=== PATIENT | male | born 1930 | race Caucasian/White ===

== ENCOUNTER → 2017-04-20 | Outpatient (CLI) | payer OTHER ==
[~2017-04-20] MED LIST: APAP500 PO; ASA5UEC PO; CARDIZEM CD180 MG PO; DUONEB 2.5-0.5 M3 ML INH; FLOMAX0.4 MG PO; HYDROCODONE-APA1 TA1 PO; LUMIGAN2.5 M1 OP
[2017-04-20 10:45] LABS: HEMATOCRIT 34.2 % (42.0-52.0); HEMOGLOBIN 11.3 gm/dL (14.0-18.0); MCH 30.5 pg (26.0-34.0); MCHC 32.9 g/dL (28.0-37.0); MCV 92.6 fL (80.0-100.0); RBC 3.7 mil/uL (4.50-6.00); RDW 13.5 % (10.5-14.5); WBC 6.3 thou/uL (4.0-11.0)
[2017-04-20 10:55] LABS: CALCIUM 9.1 mg/dL (8.5-10.1); CREATININE 2.1 mg/dL (0.7-1.3)
[2017-04-20 11:00] LABS: ALBUMIN 3.7 g/dL (3.4-5.0); DIRECT BILIRUBIN 0.1 mg/dL (<0.1-0.3); TOTAL BILIRUBIN 0.4 mg/dL (<0.1-1.0); TOTAL PROTEIN 7.6 g/dL (6.4-8.2)
== END ==
LOC: LABMALL 10:11
PROVIDERS: Otolaryngology Plastic Surgery within the Head & Neck
DX: C43.59 Malignant melanoma of other part of trunk (principal); G25.0 Essential tremor; R79.89 Other specified abnormal findings of blood chemistry

== ENCOUNTER 2019-04-11 10:42 | Inpatient (IN) | payer OTHER ==
[~2019-04-11] VITALS: Ht 170.2 cm; Wt 61.6 kg
[2019-04-11] VITALS (7 sets, daily range): BP systolic 161–217; BP diastolic 63–89
[2019-04-11 11:16] LABS: ABSOLUTE NEUTROPHILS 3.7 thou/uL (1.4-8.2); EOSINOPHILS 3.8 % (0.0-3.0); HEMATOCRIT 37.9 % (42.0-52.0); HEMOGLOBIN 12.8 gm/dL (14.0-18.0); LYMPHOCYTES 18.2 % (24.0-44.0); MCH 31.9 pg (26.0-34.0); MCHC 33.9 g/dL (28.0-37.0); MCV 94.2 fL (80.0-100.0); MONOCYTES 7.1 % (1.0-8.0); PLATELET COUNT 201 thou/uL (150-400); POLYS 69.9 % (36.0-66.0); RBC 4.02 mil/uL (4.50-6.00); RDW 12.7 % (10.5-14.5); WBC 5.2 thou/uL (4.0-11.0)
[2019-04-11 11:33] LABS: ANION GAP 10 mmol/L (7-16); BUN 47 mg/dL (7-18); CALCIUM 8.8 mg/dL (8.5-10.1); CHLORIDE 107 mmol/L (98-107); CO2 24 mmol/L (21-32); CREATININE 2.2 mg/dL (0.7-1.3); GLUCOSE 101 mg/dL (74-106); POTASSIUM 4.7 mmol/L (3.5-5.1); SODIUM 141 mmol/L (136-145)
[2019-04-11 11:46] LABS: ALBUMIN 4.1 g/dL (3.4-5.0); SGOT 26 U/L (15-37); SGPT 29 U/L (30-65); TOTAL BILIRUBIN 0.5 mg/dL (<0.1-1.0); TOTAL PROTEIN 7.3 g/dL (6.4-8.2); TROPONIN-I <0.06 ng/mL (<0.06)
--- NOTE | 2019-04-11 19:32 | NUR ---
PATIENT ARRIVED FROM ED VIA STRECHER, ALERT AND ORIENTED. IN BED,MONITOR PLACED AND SINUS RHYTHM. MESSAGE SENT TO DR BUENROSTRO AND REPORT GIVING TO RN.
[2019-04-12 03:00] VITALS: BP 185/72
--- NOTE | 2019-04-12 05:10 | NUR ---
ASSUMED PT CARE AT SHIFT CHANGE WITH PT BEEN AN ADMIT FROM ER. NO SIGN OF DISTRESS NOTED, PT IS ALERT AND ORIENTED. NO FAMILY AT BEDSIDE. PT IS ADMITTED WITH HYPERTENSION. NURSE PRACTITIONER NOTIFIED AND BLOOD PRESSURE MEDS ADMINISTERED TO PT. ADMISSION ASSESSMENT AND DATA COMPLETED WITH PATIENT. TELEMETRY POLICY DISCUSSED WITH PATIENT AND HE VERBALIZES UNDERSTANDING. SCHEDULED MEDS ADMINISTERED. DENIES ANY FURTHER NEEDS AT THIS TIME.
[2019-04-12 07:35] VITALS: BP 153/62
[2019-04-12 09:24] LABS: CHOLESTEROL 147 mg/dL (<200); HDL CHOLESTEROL 51 mg/dL (>40); LDL CHOLESTEROL 83 mg/dL (<100); TC:HDL 2.9 Ratio (Not establshd); TRIGLYCERIDE 67 mg/dL (<150); VLDL 13 mg/dL (<40)
--- NOTE | 2019-04-12 10:32 | 2DMMODE ---
[facility] [address] 2 D/M-MODE ECHOCARDIOGRAM Name: ZACKARY GUZMAN Room #: 214-P ADM IN M.R.#: [id number] ������������� Admission: 04/11/19 ������������� Attend Phys: Filiberto Clifton MD Discharge: ��� ������������� ��� Date of : 30 Date of Service: 04/12/19 1032 �� Report #: [id number] �������� ��������������������������������������������[id number] THIS REPORT FOR: //name// APPROVED REPORT Study performed: 04/12/2019 09:38:45 EXAM: Comprehensive 2D, Doppler, and color-flow Echocardiogram Patient Location: Echo lab Room #: 214 Status: routine BSA: 1.72 HR: 77 bpm BP: 153/62 mmHg Rhythm: NSR Other Information Study Quality: Adequate/limited parasternal window Technically limited study due to body habitus and lung artifact. Indications Near syncope, murmur, HTN. 2D Dimensions RVDd: 35.18 mm IVSd: 12.00 (7-11mm) LVOT Diam: 19.63 (18-24mm) LVDd: 41.78 mm PWd: 11.00 (7-11mm) LVDs: 28.69 (25-40mm) Aortic Root: 38.54 mm Volumes Left Atrial Volume (Systole) Single Plane 4CH: 38.46 mL Single Plane 2CH: 47.96 mL LA ESV Index: 28.00 mL/m2 Aortic Valve AoV Peak Harinder.: 3.71 m/s AO Peak Gr.: 54.92 mmHg LVOT Max P.27 mmHg AO Mean Gr.: 37.62 mmHg AO V2 Mean: 2.97 m/s LVOT Max V: 1.25 m/s AO V2 VTI: 81.28 cm GAGE Vmax: 1.02 cm2 [facility] [employer] [place] [address] 2 D/M-MODE ECHOCARDIOGRAM Name: ZACKARY GUZMAN Room #: 214-P [facility] IN ..#: [id number] ������������� Admission: 04/11/19 ������������� Attend Phys: Filiberto Clifton MD Discharge: ��� ������������� ��� Date of : 30 Date of Service: 04/12/19 1032 �� Report #: [id number] �������� ��������������������������������������������[id number] Mitral Valve MV Decel. Time: 254.82 ms MV PHT: 73.90 ms MVA (PHT): 2.94 cm2 IVRT: 86.51 ms Pulmonary Valve PV Peak Harinder.: 1.21 m/s PV Peak Gr.: 5.90 mmHg Pulmonary Vein P Vein S: 0.50 m/s P Vein A: 0.41 m/s P Vein D: 0.27 m/s P Vein A Dur.: 62.3 msec P Vein S/D Ratio: 1.85 Tricuspid Valve TR Peak Harinder.: 2.88 m/s RAP Estimate: 5.00 mmHg TR Peak Gr.: 33.20 mmHg PA Pressure: 38.00 mmHg Left Ventricle The left ventricle is normal size. There is normal LV segmental wall motion. Mild concentric left ventricular hypertrophy. Left ventricular systolic function is normal. LVEF is 65%. Mild diastolic dysfunction is present (impaired relaxation pattern). Right Ventricle The right ventricle is normal size. The right ventricular systolic function is normal. Atria The left atrium size is normal. The right atrium size is normal. Aortic Valve Aortic valve is heavily calcified. Mild to moderate aortic regurgitation. There is moderate to severe valvular aortic stenosis. Calculated aortic valve area is 1.0 cm2 with maximum pressure gradient of 55 mmHg and mean pressure gradient of 38 mmHg. Mitral Valve Mitral valve leaflets are thickened. Heavily calcified annulus. Trace mitral regurgitation. Mild mitral stenosis with a mean pressure gradient of 5mmHg. Tricuspid Valve The tricuspid valve is normal in structure. Mild tricuspid [address] [address] 2 D/M-MODE ECHOCARDIOGRAM Name: ZACKARY GUZMAN Room #: 214-P [facility] IN ..#: [id number] ������������� Admission: 04/11/19 ������������� Attend Phys: Filiberto lCifton MD Discharge: ��� ������������� ��� Date of : 30 Date of Service: 04/12/19 1032 �� Report #: [id number] �������� ��������������������������������������������[id number] regurgitation. Estimated PAP is 35-40mmHg. Pulmonic Valve Pulmonic valve is not well visualized. Trace pulmonic regurgitation. Great Vessels Aortic root is mildly dilated. Ascending aorta is not well visualized. IVC is normal in size and collapses >50% with inspiration. Pericardium No pericardial effusion. <Conclusion> The left ventricle is normal size. LVEF is 65%. Aortic valve is heavily calcified. Mild to moderate aortic regurgitation. There is moderate to severe valvular aortic stenosis. Calculated aortic valve area is 1.0 cm2 with maximum pressure gradient of 55 mmHg and mean pressure gradient of 38 mmHg. AVmax 3.71 m/s Mitral valve leaflets are thickened. Heavily calcified annulus. Trace mitral regurgitation. Mild mitral stenosis with a mean pressure gradient of 5mmHg. The tricuspid valve is normal in structure. Mild tricuspid regurgitation. Estimated PAP is 35-40mmHg. Pulmonic valve is not well visualized. Trace pulmonic regurgitation. Aortic root is mildly dilated. No pericardial effusion. ��������������������������������������������� <ELECTRONICALLY SIGNED> ���������������������������������������� By: Truong Krishna MD ��������������������������������������������� 04/12/19 1032 1032 1032 Truong Krishna MD /INF
[2019-04-12 12:06] VITALS: BP 163/78
--- NOTE | 2019-04-12 13:39 | EKG ---
[address] [address] ELECTROCARDIOGRAM REPORT Name: ZACKARY GUZMAN Guanaco Room #: 214-P ADM IN M.R.#: [id number] ������������������ Admission: 04/11/19 ������������������ Attend Phys: Filiberto Clifton MD Discharge: ������������������ Date of : 30 Report #: [id number] ����������������������������������������������������������������� [id number] THIS REPORT FOR: //name// [facility] ED Test Date: 2019-04-11 Test Time: 10:57:15 Pat Name: ZACKARY GUZMAN Department: Room: 214 Gender: M Phone Operator: PATTI : 1930 Requested By: Patricia Chilel Order Number: [id number] MD: Nasir Campos Measurements Intervals [place] Rate: 60 P: 40 CO: 228 QRS: 31 QRSD: 84 T: 51 QT: 409 QTc: 409 Interpretive Statements Sinus rhythm Atrial premature complex Prolonged CO interval Consider left ventricular hypertrophy Baseline wander in lead(s) V3 Compared to ECG 05/13/2015 20:51:38 Atrial premature complex(es) now present Electronically Signed On 04-12-2019 13:39:39 CDT by Nasir Campos [email or web address] ��������������������������������������������� <ELECTRONICALLY SIGNED> ���������������������������������������� By: Nasir Campos MD ��������������������������������������������� 04/12/19 1339 1057 1057 Nasir Campos MD /EPI
--- NOTE | 2019-04-12 13:58 | NUR ---
ASSESMENT COMPLETED. BP ELEVATED OTHERWISE STABLE. DENIES PAIN. NO NOTED SOA. NO NV. AMBULATED IN HALLWAY SEVERAL TIMES TODAY. STAND BY WHEN UP. PT NOTED TO HAVE A RUN OF SVT AT APPROX 1200- RESOLVED. WILL MONITOR CLOSELY.
--- NOTE | 2019-04-12 16:44 | NUR ---
Chart reviewed and case discussed with the care team. Pt is a&ox4 and lives alone in a ranch style home. He is independent with gait, adl's and iadl's. He drives occasionally and relies on his son for help as needed. No cm intervention indicated at this time. Will ask the care team to order therapy evals.
[2019-04-12 16:57] VITALS: BP 150/64
--- NOTE | 2019-04-12 17:51 | NUR ---
NO CHANGE SINCE AM ASSESMENT. BP BETTER THIS EVENING. NO CONCERNS VOICED A THIS TIME. WILL CONT,. TO MONITOR.
[2019-04-12 19:47] VITALS: BP 148/67
--- NOTE | 2019-04-13 04:14 | NUR ---
Assumed care at 1845. Pt resting in bed. AOX4. Hasnt had an episode of syncope. Hasnt left his bed this shift. Denies dizziness. BP has been stable. Havent given hydralazine this shift. Chart check complete. No identified needs. Call light within reach. Will continue to monitor.
[2019-04-13 05:23] VITALS: BP 168/77
[2019-04-13 06:26] VITALS: BP 144/65
[2019-04-13 07:28] VITALS: BP 140/58
[2019-04-13 09:47] LABS: CALCIUM 9.1 mg/dL (8.5-10.1); CREATININE 2.2 mg/dL (0.7-1.3); POTASSIUM 4.9 mmol/L (3.5-5.1)
[2019-04-13 12:37] VITALS: BP 110/52
[2019-04-13] MEDS ORDERED: LOPERAMIDE 2 MG2 M1 PO (12:56)
[2019-04-13] MEDS ORDERED: METOPROLOL SUCC50 MG PO (12:56)
[2019-04-13] MEDS ORDERED: AMLODIPINE BESY10 MG PO (12:56)
[2019-04-13 16:26] VITALS: BP 112/75
[2019-04-13 19:35] VITALS: BP 156/77
[2019-04-14 00:03] VITALS: BP 134/97
[2019-04-14 00:53] LABS: URINE BILIRUBIN NEGATIVE (Negative); URINE BLOOD TRACE (Negative); URINE CLARITY CLEAR; URINE COLOR YELLOW; URINE GLUCOSE-RANDOM* NEGATIVE (Negative); URINE KETONES NEGATIVE (Negative); URINE PROTEIN (DIPSTICK) NEGATIVE (Negative); URINE SPECIFIC GRAVITY 1.015 (1.005-1.035); URINE UROBILINOGEN 0.2 E.U./dl (0.2-1.0)
[2019-04-14 00:56] LABS: URINE LEUKOCYTES-REFLEX 2+ (Negative); URINE NITRITE-REFLEX POSITIVE (Negative)
[2019-04-14 01:06] LABS: CASTS None Seen /LPF (None Seen); MUCUS None Seen strn/LPF (None Seen); SQUAMOUS None Seen /LPF (0-3); URINE RBC 0-2 Rare /HPF (0-2); WBC CLUMPS Few (None Seen)
[2019-04-14 01:07] LABS: BACTERIA-REFLEX 1-9 Few /HPF (None Seen); CRYSTALS None Seen /LPF (None Seen)
[2019-04-14 04:10] VITALS: BP 126/66
--- NOTE | 2019-04-14 06:23 | NUR ---
patient aox4 makes needs known. ua collected per order. patient ambulates in the room with unseady gaits. patient gets tachycardiac with activities. patient denied dizziness, pain or discomfort this shift. patient in bed asleep at this time breathing regular and unlaboured.
[2019-04-14 07:23] VITALS: BP 134/72
[2019-04-14 11:13] VITALS: BP 94/56
[2019-04-14 15:19] VITALS: BP 101/66
--- NOTE | 2019-04-14 18:05 | NUR ---
PT UP IN CHAIR MOST OF THE SHIFT AND AMBULATING HALLS. DENIES CP OR SOA. WILL HAVE STRESS TEST IN THE AM.
[2019-04-14 19:12] VITALS: BP 119/82
[2019-04-15 00:18] VITALS: BP 110/67
--- NOTE | 2019-04-15 00:22 | NUR ---
PROGRESS PT A/OX4 UP WITH SBA, VOIDING PER LEAH. DENIES PAIN EXCEPT FOR SOME CHRONIC RIGHT PAIN. VSS, TELE INTACT READING SR WITH RATES IN 70'2 TO 80'S. NPO AFTER MN PENDING STRESS TEST IN AM.
[2019-04-15 05:30] VITALS: BP 107/72
--- NOTE | 2019-04-15 06:40 | NUR ---
RECEIVED PT'S CARE AT 2320; PT. ON BED; SLEEPING; ASSESSMENT PERFORMED; C/O PAIN OVER L ARM; 04/22; ST. HAVING PAIN OVER 3 WEEKS; REFUSED PAIN MEDICATION; EDUCATED ABOUT BEING NPO AFTER MIDNIGHT; ST. UNDERSTANDING; REFUSED BED ALARM; ST. ABLE TO AMBULATE WITHOUT AIDS; ABLE TO SLEEP THROUGH THE NIGHT; ASSESSMENT CHARGED; FOLLOWING POC; WILL PASS ON REPORT.
[2019-04-15 08:19] VITALS: BP 113/81
[2019-04-15 12:43] VITALS: BP 114/75
[2019-04-15 16:11] VITALS: BP 114/75
--- NOTE | 2019-04-15 18:02 | NUR ---
ASSUMED CARE THIS AM, NPO FOR STRESS TEST. SA WITH PAC'S ON MONITOR. UP AD DARWIN. NO COMPLAINTS OF NAUSEA, DIZZINESS OR CP. STRESS TEST NEGATIVE AND ORDERS RECIEVED TO DISCHARGE PATIENT AFTER GETTING FIRST DOSE OF ELIQUIS. WILL GO TO SHAKIRA'S OFFICE IN AM TO GET MORE SAMPLES. DISCHARGE INSTRUCTIONS COMPLETED WITH PATIENT AND SON. QUESTIONS ASKED AND ANSWERED. DISCHARGED IN STABLE CONDITION
--- NOTE | 2019-04-16 09:11 | EKG ---
[address] [address] ELECTROCARDIOGRAM REPORT Name: ZACKARY GUZMAN Room #: 214-P DIS IN M.R.#: [id number] ������������������ Admission: 04/11/19 ������������������ Attend Phys: Filiberto Clifton MD Discharge: 04/15/19 ������������������ Date of : 30 Report #: [id number] ����������������������������������������������������������������� [id number] THIS REPORT FOR: //name// [facility] Test Date: 2019-04-15 Test Time: 15:43:17 Pat Name: ZACKARY GUZMAN Department: Room: 214 P Gender: M Curing Supervisor: JASWINDER : 1930 Requested By: Filiberto Clifton Order Number: [id number] MD: Kt Salinas Measurements Intervals [place] Rate: 70 P: MS: QRS: 32 QRSD: 91 T: 50 QT: 394 QTc: 426 Interpretive Statements Atrial fibrillation Otherwise no significant abnormality Compared to ECG 04/11/2019 10:57:15 Atrial fibrillation has replaced sinus rhythm Electronically Signed On 04-16-2019 9:11:00 CDT by Kt Salinas [email or web address] ��������������������������������������������� <ELECTRONICALLY SIGNED> ���������������������������������������� By: Kt Salinas MD, [facility] ��������������������������������������������� 04/16/19 09 1543 1543 Kt Salinas MD, [facility] /EPI
== END 2019-04-15 17:45 | disposition home or self-care (01) | DRG 683 ==
LOC: ER 10:42 → EROBS 13:18 → 2N 13:18
PROVIDERS: Nurse Practitioner; Nurse Practitioner Adult Health; Nurse Practitioner Family; ADMIT Internal Medicine
DX: N17.9 Acute kidney failure, unspecified (principal); K52.1 Toxic gastroenteritis and colitis; I49.9 Cardiac arrhythmia, unspecified; N18.4 Chronic kidney disease, stage 4 (severe); Z60.2 Problems related to living alone; R01.1 Cardiac murmur, unspecified; I12.9 Hypertensive chronic kidney disease with stage 1 through stage 4 chronic kidney disease, or unspecified chronic kidney disease; N18.9 Chronic kidney disease, unspecified; N40.0 Benign prostatic hyperplasia without lower urinary tract symptoms; I49.1 Atrial premature depolarization; E03.9 Hypothyroidism, unspecified; R00.0 Tachycardia, unspecified; I08.0 Rheumatic disorders of both mitral and aortic valves; I16.0 Hypertensive urgency; T46.5X5A Adverse effect of other antihypertensive drugs, initial encounter; H54.7 Unspecified visual loss; Z87.442 Personal history of urinary calculi; Z79.899 Other long term (current) drug therapy; Z79.82 Long term (current) use of aspirin; Z85.820 Personal history of malignant melanoma of skin; Z82.49 Family history of ischemic heart disease and other diseases of the circulatory system; Z83.3 Family history of diabetes mellitus; Z82.0 Family history of epilepsy and other diseases of the nervous system; Y92.89 Other specified places as the place of occurrence of the external cause
CPT/HCPCS: 10081

== ENCOUNTER 2019-04-22 11:27 | Emergency (ER) | payer OTHER ==
[~2019-04-22] VITALS: Ht 170.2 cm; Wt 64.4 kg
[~2019-04-22 11:27] MED LIST changes: +AMLODIPINE BESY10 MG PO; +LOPERAMIDE 2 MG2 M1 PO; +METOPROLOL SUCC50 MG PO
[2019-04-22 12:16] LABS: ABSOLUTE NEUTROPHILS 5.1 thou/uL (1.4-8.2); BASOPHILS 0.5 % (0.0-2.0); EOSINOPHILS 3.7 % (0.0-3.0); HEMATOCRIT 35.1 % (42.0-52.0); HEMOGLOBIN 11.7 gm/dL (14.0-18.0); LYMPHOCYTES 13.3 % (24.0-44.0); MCH 31.9 pg (26.0-34.0); MCHC 33.4 g/dL (28.0-37.0); MCV 95.4 fL (80.0-100.0); MONOCYTES 6.3 % (1.0-8.0); PLATELET COUNT 225 thou/uL (150-400); POLYS 76.2 % (36.0-66.0); RBC 3.68 mil/uL (4.50-6.00); RDW 13.2 % (10.5-14.5); WBC 6.7 thou/uL (4.0-11.0)
[2019-04-22 12:29] LABS: APTT 26.8 Seconds (24.5-32.8); PROTIME 10.9 Seconds (9.3-11.4)
[2019-04-22 12:32] LABS: ANION GAP 11 mmol/L (7-16); BUN 53 mg/dL (7-18); CALCIUM 8.7 mg/dL (8.5-10.1); CHLORIDE 109 mmol/L (98-107); CO2 22 mmol/L (21-32); CREATININE 2.3 mg/dL (0.7-1.3); GLUCOSE 111 mg/dL (74-106); POTASSIUM 4.6 mmol/L (3.5-5.1); SODIUM 142 mmol/L (136-145)
[2019-04-22 12:42] LABS: ALBUMIN 3.9 g/dL (3.4-5.0); MAGNESIUM 2.1 mg/dL (1.8-2.4); SGOT 52 U/L (15-37); SGPT 88 U/L (30-65); TOTAL BILIRUBIN 0.5 mg/dL (<0.1-1.0); TOTAL PROTEIN 7.3 g/dL (6.4-8.2); TROPONIN-I <0.06 ng/mL (<0.06)
[2019-04-22] MEDS ORDERED: COZAAR 25 MG TA25 M1 PO (13:24)
[2019-04-22 13:27] VITALS: BP 134/77
--- NOTE | 2019-04-23 09:06 | EKG ---
[place] [address] [address] [facility] [employer] [place] [address] ELECTROCARDIOGRAM REPORT Name: ZACKARY GUZMAN Guanaco Room #: DEP Krista#: [id number] ������������������ Admission: 04/22/19 ������������������ Attend Phys: Discharge: 04/22/19 ������������������ Date of : 30 Report #: [id number] ����������������������������������������������������������������� [id number] THIS REPORT FOR: //name// [facility] ED Test Date: 2019-04-22 Test Time: 12:01:35 Pat Name: ZACKARY GUZMAN Department: Room: Gender: [employer]: [facility] : 1930 Requested By: Nay Lynn Order Number: [id number] MD: Kt Salinas Measurements Intervals [place] Rate: 77 P: GA: QRS: 40 QRSD: 85 T: 51 QT: 373 QTc: 423 Interpretive Statements Atrial fibrillation Compared to ECG 04/15/2019 15:43:17 No significant changes Electronically Signed On 04-23-2019 9:06:41 CDT by Kt Salinas [email or web address] ��������������������������������������������� <ELECTRONICALLY SIGNED> ���������������������������������������� By: Kt Salinas MD, [facility] ��������������������������������������������� 04/23/19 0906 1201 1201 Kt Salinas MD, [facility] /EPI
== END 2019-04-22 13:37 | disposition home or self-care (01) ==
LOC: ER 11:27
PROVIDERS: Physician Assistant
DX: R60.9 Edema, unspecified (principal); T50.995A Adverse effect of other drugs, medicaments and biological substances, initial encounter; Y92.89 Other specified places as the place of occurrence of the external cause; N18.9 Chronic kidney disease, unspecified; Z87.442 Personal history of urinary calculi

== ENCOUNTER → 2019-05-03 | Outpatient (CLI) | payer OTHER ==
[~2019-05-03] VITALS: Ht 170.2 cm; Wt 60.3 kg
[~2019-05-03] MED LIST changes: +COZAAR 25 MG TA25 M1 PO
[2019-05-03 11:01] VITALS: BP 183/77
--- NOTE | 2019-05-06 12:20 | LINQ ---
[facility] [address] [email or web address] [address] [address] PROCEDURE REPORT Name: MEGANZACKARY Blanc Room #: REG CL MimiMimi#: [id number] ������������� Admission: 05/03/19 ������������� Attend Phys: Truong Joyner Discharge: ��� ������������� ��� Date of : 30 Date of Service: 05/06/19 1219 �� Report #: [id number] �������� ��������������������������������������������[id number] THIS REPORT FOR: //name// APPROVED REPORT Study performed: 05/03/2019 14:25:26 Patient Status: Out-Patient Room #: Event Personnel: Truong Krishna MD Exam: Loop Recorder Implant Indications: Dyspnea; Dizziness, palpitation The patient is a 88 year-old male with a history of palopitations, near syncope. Implanted Devices: [employer]; Confirm Rx; Reference#: [id number]; SN: [id number] Procedure The patient underwent informed consent. We discussed the details of the procedure including the risks, which include, but not limited to bleeding, infection, vascular damage, cardiac perforation, and pneumothorax. After informed consent was obtained the patient was brought to the cardiac catheterization prep and hold. The left chest was prepped and draped in usual sterile manner. Utilizing 1% lidocaine the proposed incision site and tract site was instilled without complications or difficulty. The patient had continuous oximetric and echocardiographic monitoring. Using both sharp and blunt dissection a small tract and pocket was made and utilizing the enclosed deployment total the confirm Rx was was delivered without complications. The subcutaneous tissue was then sewn with 2 simple interrupted absorbable suture and the skin was sewn with a subcuticular 30 absorbable. Steri-Strips 4 x 4 OpSite were utilized. There were no complications. Complications The patient tolerated the procedure well and there were no complications associated with the procedure. Findings Estimated Blood Loss: 0 Conclusion Successful implantation of a [employer] confirm Rx loop recorder [address] [address] [employer] PROCEDURE REPORT Name: ZACKARY GUZMAN Room #: REG Krista#: [id number] ������������� Admission: 05/03/19 ������������� Attend Phys: Truong Joyner Discharge: ��� ������������� ��� Date of : 30 Date of Service: 05/06/191218 �� Report #: [id number] �������� ��������������������������������������������[id number] Recommendations Routine post implantation protocol ��������������������������������������������� <ELECTRONICALLY SIGNED> ���������������������������������������� By: Truong Krishna MD ��������������������������������������������� 05/06/199 18 18 Truong Krishna MD /INF
== END | disposition home or self-care (01) ==
LOC: CATH 10:01 → EDSTATUS 10:24
DX: R55 Syncope and collapse (principal); I48.91 Unspecified atrial fibrillation; I10 Essential (primary) hypertension; Z98.890 Other specified postprocedural states; Z79.899 Other long term (current) drug therapy; Z79.01 Long term (current) use of anticoagulants

== ENCOUNTER 2019-05-14 07:44 | Emergency (ER) | payer OTHER ==
[~2019-05-14] VITALS: Ht 170.2 cm; Wt 59.4 kg
[2019-05-14] MEDS ORDERED: ELIQUIS5 MG PO (07:52)
[2019-05-14 08:18] LABS: HEMOGLOBIN 12.7 gm/dL (14.0-18.0); MCH 31.6 pg (26.0-34.0); MCHC 33.3 g/dL (28.0-37.0); MCV 94.6 fL (80.0-100.0); RBC 4.02 mil/uL (4.50-6.00); RDW 13.3 % (10.5-14.5); WBC 7.7 thou/uL (4.0-11.0)
[2019-05-14 08:22] LABS: CALCIUM 8.9 mg/dL (8.5-10.1); CREATININE 2.2 mg/dL (0.7-1.3); POTASSIUM 4.5 mmol/L (3.5-5.1)
[2019-05-14 10:35] VITALS: BP 158/79
== END 2019-05-14 10:35 | disposition home or self-care (01) ==
LOC: ER 07:44
PROVIDERS: Emergency Medicine
DX: S42.032A Displaced fracture of lateral end of left clavicle, initial encounter for closed fracture (principal); S51.811A Laceration without foreign body of right forearm, initial encounter; S20.212A Contusion of left front wall of thorax, initial encounter; I48.91 Unspecified atrial fibrillation; Z79.899 Other long term (current) drug therapy; W01.0XXA Fall on same level from slipping, tripping and stumbling without subsequent striking against object, initial encounter; Y93.01 Activity, walking, marching and hiking; Y92.89 Other specified places as the place of occurrence of the external cause; Y99.8 Other external cause status

== ENCOUNTER → 2020-05-04 | Outpatient (CLI) | payer OTHER ==
[~2020-05-04] MED LIST changes: +ELIQUIS5 MG PO
== END ==
LOC: SJCVC 13:02
PROVIDERS: ATTEND Internal Medicine
DX: I48.92 Unspecified atrial flutter (principal); I44.30 Unspecified atrioventricular block; R94.31 Abnormal electrocardiogram [ECG] [EKG]; I48.91 Unspecified atrial fibrillation; I35.0 Nonrheumatic aortic (valve) stenosis; E78.5 Hyperlipidemia, unspecified; R55 Syncope and collapse; I10 Essential (primary) hypertension; Z79.899 Other long term (current) drug therapy